=== PATIENT | male | born 1945 | race Caucasian/White ===

== ENCOUNTER 2016-10-31 01:42 | Emergency (ER) | payer MEDICARE, OTHER ==
[2016-10-31] MEDS ORDERED: HYDROmorphone 1 MG/ML SYRINGE IM STA ×2 (03:03→05:11)
[2016-10-31] MEDS ORDERED: ONDANSETRON ODT 4 MG TABLET TL STA (03:03)
[2016-10-31] MEDS ORDERED: HYDROmorphone 1 MG/ML SYRINGE ONE ×2 (03:06→05:13)
[2016-10-31] MEDS ORDERED: ONDANSETRON ODT 4 MG TABLET ONE (03:07)
[2016-10-31] MEDS ORDERED: oxyCODONE/ACET 5/325 Prepack 4 PO STA (05:12)
[2016-10-31] MEDS ORDERED: oxyCODONE/ACET 5/325 Prepack 4 PO ONE (05:14)
== END 2016-10-31 05:45 | disposition home or self-care (01) ==
DX: R10.9 Unspecified abdominal pain (principal); R31.0 Gross hematuria; Z98.890 Other specified postprocedural states
CPT/HCPCS: 96372; 99283; 99284; J1170; Q0162

== ENCOUNTER 2020-03-31 14:06 | Outpatient (CLI) | payer MEDICARE, OTHER ==
--- NOTE | 2020-03-31 15:08 | CT Report ---
PROCEDURE: MAXILLOFACIAL WO INDICATIONS: LATE EFFECT OF HEAD INJURY, JAW PAIN TECHNIQUE: Noncontrast 1.5 mm thick axial images acquired from the mandible through the frontal sinuses, with co debbi and sagittal reformatting. For radiation dose reduction, the following was used: automated ex posure control, adjustment of mA and/or kV according to patient size. COMPARISON: None. FINDINGS: Image quality: Excellent. Bones and teeth: Orbital ramey are intact. Sinus ramey show no fracture or deformity. Nasal bones and septum are intact. Visualized portions of the mandible demonstrate no fractures or subluxation. Zygomatic arches are intact. Pterygoid plates are intact. Visualized portions of the skull base an d auditory canals are intact. Sinuses: Paranasal sinuses are aerated, without fluid levels, mucosal thickening, or mucoceles. Mas toid air cells are aerated. Soft tissues: No edema, masses, or fluid collections. No enlarged lymph nodes. No soft tissue lace rations or debris. Vascular: Visualized vascular structures appear normal in the absence of contrast. Bony vascular fo ramina and canals are intact. IMPRESSION: No trauma found. No air-fluid level is seen within the paranasal sinuses. Source of jaw pain is not identified-no mandibular fracture or TMJ dislocation is seen. Reviewed by: Ovi Last MD on 03/31/2020 3:06 PM PDT Approved by: Ovi Last MD on 03/31/2020 3:06 PM PDT Station ID: [id number]
--- NOTE | 2020-03-31 15:09 | CT Report ---
PROCEDURE: HEAD WO INDICATIONS: LATE EFFECT OF HEAD INJURY, JAW PAIN TECHNIQUE: Noncontrast 4.5 mm thick angled axial sections acquired from the foramen magnum to the vertex. For r adiation dose reduction, the following was used: automated exposure control, adjustment of mA and/or kV according to patient size. COMPARISON: None. FINDINGS: Image quality: Excellent. CSF spaces: Basal cisterns are patent. No extra-axial fluid collections. Ventricles are normal in size and shape. Brain: No midline shift. No intracranial masses or hemorrhage. Shay-white matter interface is norm al. Skull and face: Calvarium and visualized facial bones are intact, without suspicious lesions. Sinuses: Visualized sinuses and mastoids are clear. IMPRESSION: No trauma found, no source of current pain syndrome is identified. Reviewed by: Ovi Last MD on 03/31/2020 3:08 PM PDT Approved by: Ovi Last MD on 03/31/2020 3:08 PM PDT Station ID: [id number]
== END 2020-03-31 14:07 | disposition home or self-care (01) ==
LOC: DI 14:06
PROVIDERS: ATTEND Physician Assistant Medical
DX: R68.84 Jaw pain (principal); S06.9X0S Unspecified intracranial injury without loss of consciousness, sequela; S00.83XA Contusion of other part of head, initial encounter
CPT/HCPCS: 70450; 70486

== ENCOUNTER 2023-10-16 12:52 | Outpatient (CLI) | payer MEDICARE, OTHER ==
--- NOTE | 2023-10-18 10:16 | DEXA Report ---
PROCEDURE: Dexa Spine and/or Hip INDICATIONS: OSTEOPOROSIS TECHNIQUE: Dual energy x-ray absorptiometry (DXA) was performed on a [employer] System. Regions measur ed are the AP Spine, femoral neck, and if needed forearm. COMPARISON: None FINDINGS: Lumbar Spine: Bone Mineral Density: 1.543 g/cm/cm,T score: 2.7. Left Femoral Neck: Bone Mineral Density: 0.951 g/cm/cm, T score: -0.9. (T score greater or equal to -1.0: NORMAL) (T score from -1.1 to -2.4: OSTEOPENIA) (T score less than or equal to -2.5 to: OSTEOPOROSIS) Impression: By WHO criteria, this patient is NORMAL with respect to bone density No evidence of osteoporosis or osteopenia of the left hip or lumbar spine Patients with diagnosis of osteoporosis or osteopenia should have regular bone mineral density assess ment. For those eligible for Medicare, routine testing is allowed once every 2 years. Testing frequ ency can be increased for patients who have rapidly progressing disease or for those who are receivin g medical therapy to restore bone mass. Reviewed by: Erick Cowart MD on 10/18/2023 10:15 AM PST Approved by: Erick Cowart MD on 10/18/2023 10:15 AM PST Station ID: [id number]
== END 2023-10-16 12:53 | disposition home or self-care (01) ==
LOC: DI 12:52
PROVIDERS: ATTEND Internal Medicine
DX: M85.859 Other specified disorders of bone density and structure, unspecified thigh (principal); M81.0 Age-related osteoporosis without current pathological fracture